=== PATIENT | female | born 1955 | race Caucasian/White ===

== ENCOUNTER 2019-07-27 11:15 | Emergency (ER) | payer BC ==
[~2019-07-27] VITALS: Ht 165.1 cm; Wt 70.5 kg
[2019-07-27] MEDS ORDERED: LISI-662 PO (11:18)
[2019-07-27] MEDS ORDERED: ALPR0.5T8 PO (11:18)
[2019-07-27] MEDS ORDERED: KETOROLAC TROMETHAMINE 30 MG/ML VIAL IM ONE (11:45)
[2019-07-27 12:01] VITALS: BP 152/84
== END 2019-07-27 12:16 | disposition home or self-care (01) ==
LOC: EMS 11:16
DX: M54.2 Cervicalgia (principal); M62.838 Other muscle spasm; F41.9 Anxiety disorder, unspecified; I10 Essential (primary) hypertension; Z79.899 Other long term (current) drug therapy
CPT/HCPCS: 96372; 99283; J1885